=== PATIENT | female | born 1975 | race Two or more races ===

== ENCOUNTER 2016-07-02 09:31 | Emergency (ER) | payer OTHER, MEDICAID ==
[2016-07-02] MEDS ORDERED: IOPAMIDOL 370 (76%) IV.SOLN 150 ML IV ONE (09:32)
[2016-07-02] MEDS ORDERED: SODIUM CHLORIDE 0.9% 1,000 ML ONE (10:12)
[2016-07-02] MEDS ORDERED: KETOROLAC TROMETHAMINE 15 MG/ML VIAL ONE (10:12)
[2016-07-02 10:19] LABS: ABSOLUTE NEUTROPHIL COUNT 3.2 K/mm3 (1.8-7.7); BASO % 0.4 % (0.2-1.0); EOS % 0.4 % (0.9-2.9); HEMATOCRIT 35.7 % (37.0-47.0); HEMOGLOBIN 11.6 gm/l (12.0-16.0); IMM NEUT% 0.2 % (0-1); LYMPH # 1.2 (1.0-4.8); LYMPH % 25.2 % (15-45); MEAN CELL VOLUME 90.2 fl (81.0-99.0); MEAN CORPUSCULAR HEMOGLOBIN 29.3 pg (27.0-31.0); MEAN CORPUSCULAR HGB CONC 32.5 g/dl (33.0-37.0); MEAN PLATELET VOLUME 10.6 fl (7.4-10.4); MONO # 0.2 (0.0-0.8); MONO % 3.3 % (4-12); NEUT % 70.5 % (43-75); PLATELET COUNT 186 K/mm3 (130-400); RED CELL DISTRIBUTION WIDTH 11.5 % (11.5-14.5)
[2016-07-02 10:35] LABS: ALB/GLOB RATIO 1.3 (>1.0); ALBUMIN 4.3 gm/dL (3.5-5.7); CALCIUM 9.2 mg/dL (8.6-10.3)
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
== END 2016-07-02 12:27 | disposition home or self-care (01) ==
LOC: ED 09:31
DX: M54.2 Cervicalgia (principal); M54.5 Low back pain; R10.32 Left lower quadrant pain; S09.90XA Unspecified injury of head, initial encounter; R07.9 Chest pain, unspecified; S80.01XA Contusion of right knee, initial encounter; V57.5XXA Driver of pick-up truck or van injured in collision with fixed or stationary object in traffic accident, initial encounter; W22.11XA Striking against or struck by driver side automobile airbag, initial encounter; Y92.410 Unspecified street and highway as the place of occurrence of the external cause